=== PATIENT | female | born 1980 | race Caucasian/White ===

== ENCOUNTER 2019-10-26 21:19 | Emergency (ER) | payer OTHER ==
[~2019-10-26] VITALS: Ht 162.6 cm; Wt 70.3 kg
[2019-10-26] MEDS: ALBUTEROL/IPRATROPIUM 3 ML NEB NEB ONE (21:50)
[2019-10-26] MEDS ORDERED: ALBUTEROL/IPRATROPIUM 3 ML NEB ONE (21:58)
[2019-10-26] MEDS: KETOROLAC TROMETHAMINE 60 MG/2 ML VIAL IM ONE (22:00)
[2019-10-26] MEDS ORDERED: KETOROLAC TROMETHAMINE 60 MG/2 ML VIAL ONE (22:03)
[2019-10-26] MEDS ORDERED: PROAIR HFA INH8.5 GM INH (22:48)
[2019-10-26] MEDS ORDERED: MEDROL4 MG PO (22:49)
[2019-10-26] MEDS ORDERED: ZITHROMAX250 MG PO (22:57)
--- NOTE | 2019-10-26 23:36 | Diagnostic Imaging Report ---
EXAMINATION: CXR 2 VIEW - HOPD INDICATION: Chest pain COMPARISON: None FINDINGS: TUBES and LINES: None. LUNGS: Normal lung volumes. Lungs are clear. No consolidations. PLEURA: No pleural effusion or pneumothorax. HEART AND MEDIASTINUM: The cardiomediastinal silhouette is unremarkable. BONES AND SOFT TISSUES: No acute osseous lesion. Soft tissues are unremarkable. UPPER ABDOMEN: No free air under the diaphragm. IMPRESSION: No acute thoracic radiographic abnormality. Signed by: Louis Wright DO on 10/26/2019 11:33 PM
== END 2019-10-26 23:55 | disposition home or self-care (01) ==
LOC: FSED 21:19
DX: R05 Cough (principal); J98.01 Acute bronchospasm; J01.00 Acute maxillary sinusitis, unspecified; S29.011A Strain of muscle and tendon of front wall of thorax, initial encounter; H69.93 Unspecified Eustachian tube disorder, bilateral
CPT/HCPCS: 71046; 99283; J1885